=== PATIENT | male | born 1995 | race Hispanic/Latino ===

== ENCOUNTER 2023-04-12 14:38 | Emergency (ER) | payer OTHER, SELFPAY ==
--- OUTSIDE RECORDS SUMMARY | 2023-04-12 14:42 | XMS REPORT | Continuity of Care Document ---
:1995 Author Organization [facility] t Address [address] [facility]. [address] [place] [address] Care Team Providers Name Role Phone PRICILA MARIANO Attending Clinician Unavailable DAVID CAMEJO Attending Clinician Unavailable IRINA MOURA Attending Clinician Unavailable MANOJ QUINTANA Attending Clinician Unavailable RACHNA CR Attending Clinician Unavailable REGINALDO WOOTEN Attending Clinician Unavailable REY CRAMER Attending Clinician Unavailable ROSA FERREIRA Attending Clinician Unavailable Problems This patient has no known problems. Allergies, Adverse Reactions, Alerts This patient has no known allergies or adverse reactions. Medications This patient has no known medications. Procedures This patient has no known procedures. Encounters Start End Encounter Admission Attending Care Care Encounter Source Date/Time Date/Time Type Type Clinicians Facility Department ID 2023-03-12 Outpatient [facility] [id number] [place] 12:59:11 [id number] [facility] 2021-10-20 Outpatient MONTSERRAT [facility] [id number] [place] 01:04:15 , PRICILA [facility] 2021-10-10 Outpatient DAVID CAMEJO [facility] [id number] [place] 01:03:28 [facility] 2021-10-05 Outpatient MARTELL [facility] [id number] [place] 01:03:49 IRINA [facility] 2021-09-23 Outpatient MARIANO [facility] [id number] [place] 09:29:07 MANOJ [facility] 2021-08-29 Outpatient [facility] [id number] [place] 16:36:32 [facility] 2021-08-05 Outpatient [facility] [id number] [place] 10:34:09 [facility] 2021-08-02 Outpatient [facility] [id number] [place] 12:49:55 [facility] 2021-07-31 Outpatient SHAYE [facility] [id number] [place] 01:04:37 [facility] 2021-07-28 Outpatient WOOTEN, [facility] [id number] [place] 01:04:01 [facility] 2021-07-26 Outpatient BELA, [facility] [id number] [place] 01:04:01 [facility] 2021-07-21 Outpatient HANNA, [facility] [id number] [place] 01:03:18 [facility] 2021-07-19 Outpatient MARTELL, [facility] [id number] [place] 01:04:00 [facility] 2021-07-19 Outpatient HANNA, [facility] [id number] [place] 01:03:00 [facility] Results This patient has no known results.
[2023-04-12] MEDS ORDERED: ONDANSETRON 4 MG/2 ML VIAL ONE (14:58)
[2023-04-12] MEDS ORDERED: FAMOTIDINE 20 MG/2 ML VIAL IV ONE (14:58)
[2023-04-12] MEDS ORDERED: KETOROLAC 30 MG/ML INJ ONE (14:58)
--- NOTE | 2023-04-12 15:45 | RAD REPORT ---
EXAM DESCRIPTION: CT - Abdomen Pelvis W Contrast - 04/12/2023 3:25 pm CLINICAL HISTORY: Abdominal pain COMPARISON: none. TECHNIQUE: Computed axial tomography of the abdomen pelvis was obtained. 100 cc Isovue-300 was admin istered intravenously. Oral contrast was not requested which limits evaluation of bowel and appendix All CT scans are performed using dose optimization technique as appropriate and may include automated exposure control or mA/KV adjustment according to patient size. FINDINGS: Diastases rectus abdominis muscle measures 10 centimeters. This extends from upper abdomen to iliac crest. Stomach, small and large bowel protrude anteriorly and lie less than a centimeter fr om the skin surface. Fatty infiltration liver. Left lobe prominent. Gallbladder borderline distended. Equivocal small gallstones. Spleen, pancreas, adrenals and kidneys are unremarkable The wall of most of the colon appears mildly thickened. IMPRESSION: Diastases rectus abdominis muscle measures 10 centimeters. This extends from upper abdom en to iliac crest. Stomach, small and large bowel protrude anteriorly and lie less than a centimeter from the skin surface. Borderline gallbladder distention with equivocal small gallstones Wall of most of the colon appears mildly thickened probably indicating a mild colitis
[2023-04-12 15:48] LABS: Absolute Lymphocytes (CBC) 1.4 K/uL (0.7-4.9); Hematocrit 42.6 % (39.6-49.0); Lymphocytes % 14.2 % (15.3-44.8); MCV 98.8 fL (80-100); MPV 9.7 fL (7.6-11.3); RBC Red Blood Cell Count 4.31 M/uL (4.33-5.43)
[2023-04-12 16:10] LABS: Albumin 4.1 g/dL (3.4-5.0); Bilirubin Total 0.5 mg/dL (0.2-1.0); Potassium 3.6 mEq/L (3.5-5.1); Protein, Total 7.8 g/dL (6.4-8.2)
[2023-04-12] MEDS ORDERED: MAGNES/ALUMIN/SIMET 30ML UCUP ONE (16:44)
[2023-04-12] MEDS ORDERED: LIDOCAINE VISCOUS 2% SOLN 15 ML UDC ONE (16:44)
--- NOTE | 2023-04-12 17:10 | EDPHYS ---
Physician Documentation [facility] Name: Marlo Andres Age: 28 yrs Sex: Male : 1995 Arrival Date: 04/12/2023 Time: 14:38 Bed 20 Private MD: ED Physician Mg Ramirez HPI: 04/12 14:48 This 28 yrs old Male presents to ER via Ambulatory with complaints of ms3 Vomiting, Abdominal Pain. 14:48 28-year-old male with past medical history of hypertension presents for upper abdominal ms3 pain that began at 6 AM. Patient states pain is currently 9/10 located in the epigastric region. Patient endorses nausea vomiting. Patient denies fevers or chills. Patient denies alleviating or inciting factors. Historical: - Allergies: 14:45 No Known Allergies; aa5 - PMHx: 14:45 Hypertensive disorder; hernia; aa5 - PSHx: 14:46 abd sx; aa5 - Immunization history:: Adult Immunizations unknown. - Social history:: Smoking status: Patient reports the use of cigarette tobacco products, denies chronic smoking, but will smoke occasionally. ROS: 14:48 Constitutional: Negative for fever, and chills. Neck: Negative for injury, pain, and ms3 swelling, Cardiovascular: Negative for chest pain, and palpitations. Respiratory: Negative for shortness of breath, cough, wheezing, and pleuritic chest pain. 14:48 MS/Extremity: Negative for injury and deformity, Skin: Negative for injury, rash, and discoloration. 14:48 Abdomen/GI: Positive for abdominal pain, nausea and vomiting, diarrhea. 14:48 All other systems are negative. Exam: 14:48 Constitutional: This is a well developed, well nourished patient who is awake, alert, ms3 and in no acute distress. Head/Face: Normocephalic, atraumatic. Neck: Trachea midline, no cervical lymphadenopathy. Supple, full range of motion without nuchal rigidity, or vertebral point tenderness. No Meningismus. Chest/axilla: Normal chest wall appearance and motion. Nontender with no deformity. Cardiovascular: Regular rate and rhythm with a normal S1 and S2. No gallops, murmurs, or rubs. Normal PMI, no JVD. No pulse deficits. Respiratory: Lungs have equal breath sounds bilaterally, clear to auscultation and percussion. No rales, rhonchi or wheezes noted. No increased work of breathing, no retractions or nasal flaring. 14:48 Abdomen/GI: Inspection: abdomen appears normal, Bowel sounds: diminished, in all quadrants, Palpation: mild abdominal tenderness, in the epigastric area. Vital Signs: 14:45 BP 190 / 117; Pulse 86; Resp 16 S; Temp 98(O); Pulse Ox 98% on R/A; Weight 52.16 kg aa5 (R); Height 5 ft. 3 in. (R); 15:43 BP 178 / 94; Pulse 69; Resp 18 S; Pulse Ox 100% on R/A; kc6 16:51 BP 150 / 98; Pulse 72; Resp 17 S; Pulse Ox 99% on R/A; kc6 14:45 Body Mass Index 20.37 (52.16 kg, 160.02 cm) aa5 MDM: 14:48 Differential diagnosis: Nonspecific abd pain, gastritis, pancreatitis, viral ms3 gastroenteritis, gastroenteritis. 14:50 Patient medically screened. ms3 17:11 Data reviewed: vital signs, nurses notes, lab test result(s), radiologic studies, and ms3 as a result, I will discharge patient. I considered the following discharge prescriptions or medication management in the emergency department Medications were administered in the Emergency Department. See MAR. Care significantly affected by the following chronic conditions: Hypertension. Counseling: I had a detailed discussion with the patient and/or guardian regarding: the historical points, exam findings, and any diagnostic results supporting the discharge/admit diagnosis, lab results, radiology results, the need for outpatient follow up, to return to the emergency department if symptoms worsen or persist or if there are any questions or concerns that arise at home. Response to treatment: the patient's symptoms have markedly improved after treatment, and as a result, I will discharge patient. ED course: Patient improved after GI cocktail.. 04/12 14:48 Order name: CBC with Diff; Complete Time: 16:20 ms3 04/12 14:48 Order name: CMP; Complete Time: 16:20 ms3 04/12 14:48 Order name: Lipase; Complete Time: 16:20 ms3 04/12 14:48 Order name: CT Abd/Pelvis - IV Contrast Only; Complete Time: 15:54 ms3 04/12 14:48 Order name: IV Saline Lock; Complete Time: 15:07 ms3 04/12 14:48 Order name: Labs collected and sent; Complete Time: 15:07 ms3 04/12 15:27 Order name: Labs - recollect needed: green and lavender. ; Complete Time: 15:37 aa5 Administered Medications: 15:11 Drug: Famotidine IVP 20 mg Route: IVP; Site: right forearm; kc6 15:11 Drug: TORadol - Ketorolac IVP 15 mg Route: IVP; Site: right forearm; kc6 15:11 Drug: Ondansetron IVP 4 mg Route: IVP; Site: right forearm; kc6 16:38 Drug: GI Cocktail without - (Maalox PO Suspension 30 ml, Lidocaine Mucous kc6 Membrane Liquid 2 % 15 ml) Route: PO; Disposition Summary: 04/12/23 17:09 Discharge Ordered Location: Home ms3 Condition: Stable ms3 Diagnosis - Upper abdominal pain, unspecified ms3 - Essential (primary) hypertension ms3 Discharge Instructions: - Discharge Summary Sheet ms3 - Abdominal Pain, Adult ms3 Forms: - Medication Reconciliation Form ms3 - Thank You Letter ms3 - Antibiotic Education ms3 - Prescription Opioid Use ms3 Prescriptions: - sucralfate 100 mg/mL Oral suspension - take 10 milliliter by ORAL route 2 times per day for 7 days; 140 milliliter; ms3 Refills: 0, Product Selection Permitted Signatures: Dispatcher [employer] Yudy Dimas RN RN aa5 Mg Ramirez DO DO ms3 Faye Barba RN RN kc6
--- NOTE | 2023-04-12 17:10 | ER ---
Nurse's Notes [facility] Name: Marlo Andres Age: 28 yrs Sex: Male : 1995 Arrival Date: 04/12/2023 Time: 14:38 Bed 20 Private MD: Diagnosis: Upper abdominal pain, unspecified;Essential (primary) hypertension Presentation: 04/12 14:45 Chief complaint: Patient states: abd pain and vomiting. Coronavirus screen: vomiting. aa5 Ebola Screen: Patient denies travel to an Ebola-affected area in the 21 days before illness onset. Initial Sepsis Screen: Does the patient meet any 2 criteria? No. Patient's initial sepsis screen is negative. Does the patient have a suspected source of infection? No. Patient's initial sepsis screen is negative. Risk Assessment: Do you want to hurt yourself or someone else? Patient reports no desire to harm self or others. Onset of symptoms was 2022. 14:45 Acuity: BRADLEY 3 aa5 14:45 Method Of Arrival: Ambulatory aa5 Historical: - Allergies: 14:45 No Known Allergies; aa5 - PMHx: 14:45 Hypertensive disorder; hernia; aa5 - PSHx: 14:46 abd sx; aa5 - Immunization history:: Adult Immunizations unknown. - Social history:: Smoking status: Patient reports the use of cigarette tobacco products, denies chronic smoking, but will smoke occasionally. Screenin:12 [facility] ED Fall Risk Assessment (Adult) History of falling in the last 3 months, kc6 including since admission No falls in past 3 months (0 pts) Confusion or Disorientation No (0 pts) Intoxicated or Sedated No (0 pts) Impaired Gait No (0 pts) Mobility Assist Device Used No (0 pt) Altered Elimination No (0 pt) Score/Fall Risk Level 0 - 2 = Low Risk Oriented to surroundings, Maintained a safe environment, Educated pt \T\ family on fall prevention, incl call for assistance when getting out of bed, Assessed \T\ reinforced patient's understanding of fall precautions, Hourly rounding (assess needs \T\ fall precautionary measures) done. Abuse screen: Denies threats or abuse. Denies injuries from another. Nutritional screening: No deficits noted. Tuberculosis screening: No symptoms or risk factors identified. Assessment: 15:12 General: Appears in no apparent distress. comfortable, Behavior is calm, cooperative, kc6 appropriate for age. Pain: Complains of pain in epigastric area Pain does not radiate. Pain currently is 8 out of 10 on a pain scale. Neuro: Level of Consciousness is awake, alert, obeys commands, Oriented to person, place, time, situation, Appropriate for age. Cardiovascular: Capillary refill < 3 seconds. Respiratory: Airway is patent Trachea midline Respiratory effort is even, unlabored, Respiratory pattern is regular, symmetrical. GI: Abdomen is flat, non-distended, Bowel sounds present X 4 quads. Abd is soft X 4 quads Abdomen is tender to palpation in epigastric area Reports epigastric pain, nausea, vomiting, Patient currently denies diarrhea. : No signs and/or symptoms were reported regarding the genitourinary system. EENT: No signs and/or symptoms were reported regarding the EENT system. Derm: No signs and/or symptoms reported regarding the dermatologic system. Skin is intact, Skin is pink, warm \T\ dry. Musculoskeletal: No signs and/or symptoms reported regarding the musculoskeletal system. Circulation, motion, and sensation intact. Capillary refill < 3 seconds, Range of motion: intact in all extremities. 16:12 Reassessment: Patient appears in no apparent distress at this time. No changes from kc6 previously documented assessment. Patient and/or family updated on plan of care and expected duration. Pain level reassessed. Patient is alert, oriented x 3, equal unlabored respirations, skin warm/dry/pink. Vital Signs: 14:45 BP 190 / 117; Pulse 86; Resp 16 S; Temp 98(O); Pulse Ox 98% on R/A; Weight 52.16 kg aa5 (R); Height 5 ft. 3 in. (R); 15:43 BP 178 / 94; Pulse 69; Resp 18 S; Pulse Ox 100% on R/A; kc6 16:51 BP 150 / 98; Pulse 72; Resp 17 S; Pulse Ox 99% on R/A; kc6 14:45 Body Mass Index 20.37 (52.16 kg, 160.02 cm) aa5 ED Course: 14:40 Patient arrived in ED. rg4 14:42 Mg Ramirez DO is Attending Physician. ms3 14:45 Arm band placed on. aa5 14:46 Triage completed. aa5 14:49 Faye Barba, RN is Primary Nurse. kc6 14:52 Radiology exam delayed due to IV insertion attempt and/or patient not having jg10 appropriate IV at this time. 15:12 Inserted saline lock: 22 gauge in right forearm, using aseptic technique. ,using kc6 aseptic technique. by Kenneth adjunct physical education instructor. 15:13 Patient has correct armband on for positive identification. Bed in low position. Call kc6 light in reach. Side rails up X 1. 15:27 CT Abd/Pelvis - IV Contrast Only In Process Unspecified. EDMS 17:47 No provider procedures requiring assistance completed. IV discontinued, intact, kc6 bleeding controlled, No redness/swelling at site. Pressure dressing applied. Administered Medications: 15:11 Drug: Famotidine IVP 20 mg Route: IVP; Site: right forearm; kc6 15:11 Drug: TORadol - Ketorolac IVP 15 mg Route: IVP; Site: right forearm; kc6 15:11 Drug: Ondansetron IVP 4 mg Route: IVP; Site: right forearm; kc6 16:38 Drug: GI Cocktail without - (Maalox PO Suspension 30 ml, Lidocaine Mucous kc6 Membrane Liquid 2 % 15 ml) Route: PO; Medication: 17:47 VIS not applicable for this client. kc6 Outcome: 17:09 Discharge ordered by . ms3 17:47 Discharged to home ambulatory, with family. kc6 17:47 Condition: stable 17:47 Discharge instructions given to patient, Instructed on discharge instructions, follow up and referral plans. medication usage, Demonstrated understanding of instructions, follow-up care, medications, Prescriptions given X 1. 17:48 Patient left the ED. kc6 Signatures: Dispatcher [employer] EDMS Yudy Terry, RN RN [email or web address] Amanda Lopez rg4 Mg Ramirez DO DO ms3 Faye Barba, TOMER RN kc6 Sandra Chowdhury [email or web address] Corrections: (The following items were deleted from the chart) 14:50 14:45 BP 190 / 117; Pulse 86bpm; Resp 16bpm; Spontaneous; Pulse Ox 98% RA; 52.16 kg aa5 Reported; Height 5 ft. 3 in. Reported; BMI: 20.3; aa5
[2023-04-12 18:00] VITALS: TEMP 98
[2023-04-12 18:02] VITALS: BP 150/98; O2SAT 99
== END 2023-04-12 17:48 | disposition home or self-care (01) ==
LOC: ER 14:38
DX: R10.13 Epigastric pain (principal); I10 Essential (primary) hypertension; R11.2 Nausea with vomiting, unspecified
CPT/HCPCS: 36415; 74177; 80053; 83690; 85025; 96374; 96375; 99284; J2405; Q9967

== ENCOUNTER 2024-06-24 15:14 | Emergency (ER) | payer SELFPAY ==
--- OUTSIDE RECORDS SUMMARY | 2024-06-24 15:16 | XMS REPORT | Continuity of Care Document ---
Author Name Unknown Address [address] [facility] [address] [place] [id number] [facility] thconnect Address [address] [facility] [place] [address] Care Team Providers Care Field Operations Coordinator Name Role Phone PRICILA MARIANO Attending Clinician UnavailDAVID Lugo Attending Clinician Unavailable IRINA MOURA Attending Clinician Unavailable MANOJ QUINTANA Attending Clinician Unavailable RACHNA CR Attending Clinician UnavailREGINALDO Bejarano Attending Clinician Unavailable REY CRAMER Attending Clinician Unavailable ROSA FERREIRA Attending Clinician Unavailable ANDREW PEDERSEN Attending Clinician Un available Encounters Start Date/Time End Date/Time Encounter Type Admission Type Attending Clinicians Care Facility Care Department Encounter ID Source 2023-03-12 12:59:11 Outpatient [facility] [id number] [facility] 2021-10-20 01:04:15 Outpatient PRICILA MARIANO [facility] [id number] [facility] 2021-10-10 01:03:28 Outpatient DAVID CAMEJO [facility] [id number] [facility] 2021-10-05 01:03:49 Outpatient IRINA MOURA [facility] [id number] [facility] 2021-09-23 09:29:07 Outpatient MANOJ QUINTANA [facility] [id number] [facility] 2021-08-29 16:36:32 Outpatient [facility] [id number] [facility] 2021-08-05 10:34:09 Outpatient [facility] [id number] [facility] 2021-08-02 12:49:55 Outpatient [facility] [id number] [facility] 2021-07-31 01:04:37 Outpatient RACHNA CR [facility] [id number] [facility] 2021-07-28 01:04:01 Outpatient REGINALDO WOOTEN [facility] [id number] [facility] 2021-07-26 01:04:01 Outpatient CRAMERREY [facility] [id number] [facility] 2021-07-21 01:03:18 Outpatient ROSA FERREIRA [facility] [id number] [facility] 2021-07-19 01:04:00 Outpatient MARTELLIRINA [facility] [id number] [facility] 2021-07-19 01:03:00 Outpatient ROSA FERREIRA [facility] [id number] [facility] 2023-05-30 12:08:00 2023-05-30 18:00:00 [facility] [id number]
[2024-06-24 16:10] LABS: Absolute Lymphocytes (CBC) 2.2 K/uL (0.7-4.9); Absolute Monocytes 0.3 K/uL (0.1-1.3); Basophils % 0.5 % (0-1.3); Eosinophils % 0.1 % (0-4.4); Hematocrit 48.8 % (39.6-49.0); Hemoglobin 16.3 g/dL (13.6-17.9); MCH 33.9 pg (27.0-35.0); MCHC 33.5 g/dL (32.0-36.0); MCV 101.3 fL (80-100); MPV 9.4 fL (7.6-11.3); Monocytes % 3.3 % (3.3-12.3); Neutrophils % 70.1 % (41.7-73.7); Nucleated Red Blood Cells % 0.2 % (0-0); Platelets 180 thou/uL (152-406); RBC Red Blood Cell Count 4.81 M/uL (4.33-5.43); Red Cell Distribution Width 15.4 % (12.1-15.2)
[2024-06-24 16:26] LABS: Albumin 4.4 g/dL (3.4-5.0); Bilirubin Total 0.6 mg/dL (0.2-1.0); Globulin 4.3 g/dL (2.3-3.5); Protein, Total 8.7 g/dL (6.4-8.2)
[2024-06-24] MEDS ORDERED: MORPHINE 4 MG/ML SYR ONE (16:52)
[2024-06-24] MEDS ORDERED: NA CHLORIDE 0.9% 1,000 ML ONE (16:52)
[2024-06-24] MEDS ORDERED: ONDANSETRON 4 MG/2 ML VIAL ONE ×2 (16:52→18:40)
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
--- NOTE | 2024-06-24 18:32 | RAD REPORT ---
EXAM DESCRIPTION: CTAbdomen Pelvis W Contrast - 06/24/2024 6:13 pm CLINICAL HISTORY: ABD PAIN COMPARISON: Abdomen Pelvis W Contrast dated 04/02/2024; Abdomen Pelvis W Contrast dated 04/12/2023 TECHNIQUE: CT of the abdomen and pelvis was performed. All CT scans are performed using dose optimization technique as appropriate and may include automated exposure control or mA/KV adjustment according to patient size. FINDINGS: Lower chest: No acute abnormality. Liver: No acute abnormality or suspicious lesions. Biliary: No biliary ductal dilatation. Stomach: No significant focal abnormality. Duodenum: No significant focal abnormality. Pancreas: No significant abnormality. Spleen: No significant abnormality. Adrenal: No suspicious lesions. Kidney/ureter: No hydronephrosis. No renal calculi. Retroperitoneum: No retroperitoneal adenopathy. Vascular: No aneurysm. Bowel: Surgical changes from likely partial colectomy and small bowel resection. Abdominal wall defec t from prior surgery with wall laxity diastases of the rectus musculature.. The colon is diffusely th ickened and hyperenhancing. Prior appendectomy . Peritoneum: No ascites or free air. Bladder: Nonspecific bladder wall thickening. Reproductive: No adnexal masses. Bones: No acute fracture. Other: n/a IMPRESSION: Colonic wall thickening and hyperenhancement concerning for the presence of a colitis. N o bowel obstruction. Patient has had significant portions of bowel resected .
[2024-06-24] MEDS ORDERED: metroNIDAZOLE 500 MG TABLET ONE (18:40)
[2024-06-24] MEDS ORDERED: CIPROFLOXACIN HCL 500 MG TAB ONE (18:40)
[2024-06-25 07:03] VITALS: TEMP 97.9
[2024-06-25 07:06] VITALS: BP 115/80; O2SAT 99
== END 2024-06-24 19:16 | disposition home or self-care (01) ==
LOC: ER 15:14
DX: A09 Infectious gastroenteritis and colitis, unspecified (principal)
CPT/HCPCS: 36415; 74177; 80053; 83690; 85025; J2405; J7030; Q9967

== ENCOUNTER 2024-07-03 12:00 | Emergency (ER) | payer SELFPAY ==
[2024-07-03 12:59] LABS: Absolute Eosinophils 0.2 K/uL (0-0.5); Absolute Lymphocytes (CBC) 2.9 K/uL (0.7-4.9); Absolute Monocytes 0.8 K/uL (0.1-1.3); Absolute Neutrophil 3.7 K/uL (1.8-8.0); Basophils % 0.5 % (0-1.3); Eosinophils % 2.4 % (0-4.4); Hematocrit 48.5 % (39.6-49.0); Hemoglobin 16.2 g/dL (13.6-17.9); Lymphocytes % 38.4 % (15.3-44.8); MCH 34.1 pg (27.0-35.0); MCHC 33.3 g/dL (32.0-36.0); MCV 102.4 fL (80-100); MPV 9.3 fL (7.6-11.3); Monocytes % 9.9 % (3.3-12.3); Neutrophils % 48.8 % (41.7-73.7); Platelets 188 thou/uL (152-406); RBC Red Blood Cell Count 4.74 M/uL (4.33-5.43); Red Cell Distribution Width 15.4 % (12.1-15.2)
--- NOTE | 2024-07-03 12:59 | RAD REPORT ---
EXAM DESCRIPTION: CTAbdomen Pelvis W Contrast - 07/03/2024 12:51 pm CLINICAL HISTORY: Abdominal pain. ABD PAIN COMPARISON: Abdomen Pelvis W Contrast dated 06/24/2024; Abdomen Pelvis W Contrast dated 04/02/2024; Abdomen Pelvis W Contrast dated 04/12/2023 TECHNIQUE: Biphasic CT imaging of the abdomen and pelvis was performed with 100 ml non-ionic IV cont rast. All CT scans are performed using dose optimization technique as appropriate and may include automated exposure control or mA/KV adjustment according to patient size. FINDINGS: The lung bases are clear. The liver demonstrates mild fatty infiltration. Spleen, pancreas, adrenal glands and kidneys are with in normal limits. No bowel obstruction, free air, free fluid or abscess. Anterior abdominal wall diastases rectus seen. Mildly thickened and dilated small bowel loops are present lower abdomen. Thickening of the colon is also present suggesting colitis. No evidence of significant lymphadenopathy. No suspicious bony findings. IMPRESSION: Thickening of the colon is present diffusely likely related to nonspecific colitis. Diastases of the rectus abdominis is present with several mildly dilated small bowel loops present an terior inferior abdomen. This is probably related to previous surgery in the region.
[2024-07-03 13:13] LABS: Albumin 4.7 g/dL (3.4-5.0); Albumin/Globulin Ratio 1.3 (1.1-1.8); Bilirubin Total 0.9 mg/dL (0.2-1.0); Globulin 3.7 g/dL (2.3-3.5); Protein, Total 8.4 g/dL (6.4-8.2)
[2024-07-03] MEDS ORDERED: POTASSIUM 25 MEQ EFFERV TAB ONE (13:21)
[2024-07-03] MEDS ORDERED: PROMETHAZINE INJ 25 MG/ML AMP ONE (13:21)
[2024-07-03] MEDS ORDERED: CIPROFLOXACIN 400mg IV 400 MG/200 ML BAG IV ONE (13:21)
[2024-07-03 13:49] LABS: Sqamous Epithelial <5 /HPF (None Seen); Urine Bacteria None Seen /HPF (<20); Urine Bilirubin NEGATIVE (Negative); Urine Blood Negative (Negative); Urine Clarity Clear (Clear); Urine Color Yellow (Yellow); Urine Culture Reflex Order NOT NEEDED; Urine Glucose NEGATIVE (Negative); Urine Ketones 2+ (Negative); Urine Microscopic Reflex YN ORDER UMIC; Urine Mucus 1+ /HPF (None Seen); Urine Nitrite NEGATIVE (Negative); Urine Protein TRACE (Negative); Urine RBC <5 /HPF (None Seen); Urine Urobilinogen Normal (Normal); Urine WBC <5 /HPF (<5); Urine pH 6.5 (5.0-7.0)
[2024-07-03 13:51] LABS: Specific Gravity > 1.030 (1.005-1.030)
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
[2024-07-03 14:56] VITALS: TEMP 97.8
[2024-07-03 15:13] VITALS: BP 106/66; O2SAT 100
--- OUTSIDE RECORDS SUMMARY | 2024-07-04 09:40 | XMS REPORT | Continuity of Care Document ---
Author Name Unknown Address [address] [facility] [address] [id number] [facility] thconnect Address [address] [facility] [place] [address] Care Team Providers Care School Manager Name Role Phone PRICILA MARIANO Attending Clinician [...] Department Encounter ID Source 2023-03-12 12:59:11 Outpatient [facility] [id number] [facility] 2021-10-20 01:04:15 Outpatient PRICILA MARIAON [facility] [id number] [facility] 2021-10-10 01:03:28 Outpatient DAVID CAMEJO [facility] [id number] [facility] 2021-10-05 01:03:49 Outpatient IRINA MOURA [facility] [id number] [facility] 2021-09-23 09:29:07 Outpatient MANOJ QUINTANA [facility] [id number] [facility] 2021-08-29 16:36:32 Outpatient [facility] [id number] [facility] 2021-08-05 10:34:09 Outpatient [facility] [id number] [facility] 2021-08-02 12:49:55 Outpatient [facility] [id number] [facility] 2021-07-31 01:04:37 Outpatient RACHNA CR [facility] [id number] [facility] 2021-07-28 01:04:01 Outpatient REGINALDO WOOTEN [facility] [id number] [facility] 2021-07-26 01:04:01 Outpatient CRAMERREY [facility] [id number] [facility] 2021-07-21 01:03:18 Outpatient ROSA FERREIRA [facility] [id number] [facility] 2021-07-19 01:04:00 Outpatient MARTELLIRINA [facility] [id number] [facility] 2021-07-19 01:03:00 Outpatient ROSA FERREIRA [facility] [id number] [facility] 2023-05-30 12:08:00 2023-05-30 18:00:00 [facility] [id number]
== END 2024-07-03 14:45 | disposition home or self-care (01) ==
LOC: ER 12:00
DX: K52.9 Noninfective gastroenteritis and colitis, unspecified (principal); R11.10 Vomiting, unspecified; I10 Essential (primary) hypertension; F17.210 Nicotine dependence, cigarettes, uncomplicated
CPT/HCPCS: 36415; 74177; 80053; 81001; 83605; 83690; 85025; 96365; 96375; 99285; J0744; J2550; Q9967